=== PATIENT | female | born 1945 | race Caucasian/White ===

== ENCOUNTER → 2023-02-27 | Outpatient (REF) | payer MEDICARE ==
[~2023-02-27] MED LIST: ASPIRIN81 MG PO; CLONIDINE HCL0.2 MG PO; COQ-10100 MG; CRANBERRY; CRESTOR10 MG PO; FARXIGA10 MG PO; GLIPIZIDE5 MG PO; HYDRALAZINE HCL50 MG PO; HYGROTON25 MG PO; KRILL OIL500 MG; METFORMIN HCL500 M2 PO; METOPROLOL SUCC25 MG PO; NEURONTIN300 MG PO
== END ==
LOC: DX 09:25 → EDSTATUS 10:00
PROVIDERS: ATTEND Nurse Practitioner
DX: Z86.010 Personal history of colon polyps (principal)
CPT/HCPCS: 74270